=== PATIENT | female | born 1990 | race Caucasian/White ===

== ENCOUNTER 2018-03-23 10:11 | Inpatient (IN) ==
[2018-03-23] MEDS ORDERED: CALCIUM CARBONATE Chewable 500mg TABLET PO PRN (10:39)
[2018-03-23] MEDS ORDERED: ACETAMINOPHEN 500 MG TABLET PO PRN (10:39)
[2018-03-23] MEDS ORDERED: LIDOCAINE 1% (10mg/ml) 2mL INJ PF SDV ID PRN (10:39)
[2018-03-23] MEDS ORDERED: CARBOPROST 250 MCG/ML INJECTION IM PRN (10:39)
[2018-03-23] MEDS ORDERED: MAG-AL + SIM ORAL LIQUID 30ml PO PRN (10:39)
[2018-03-23] MEDS ORDERED: METHYLERGONOVINE 0.2 MG/ML INJECTION IM PRN (10:39)
[2018-03-23] MEDS ORDERED: SALINE FLUSH 10ml SYRINGE IV PRN (10:39)
[2018-03-23 10:44] VITALS: BMI 42.5
[2018-03-23] MEDS: LR 1,000 ML IV PRN (11:15)
[2018-03-23] MEDS: D5LR 1,000 ML IV PRN ×2 (11:20→20:26)
[2018-03-23] MEDS: OXYTOCIN DRIP 30 UNIT/500 ML ML IV PRN (11:20)
--- NOTE | 2018-03-23 17:10 | Anesthesia Preoperative Report ---
Anesthesia Epidural/Spinal Rec - Date and Time Date: 03/23/18 Procedure: Labor Epidural Plan: Epidural - Vital Signs Vital Signs: Pulse Rate 86 03/23/18 10:46 Respiratory Rate 16 03/23/18 10:46 Blood Pressure 140/94 H 03/23/18 10:46 /Para: P:1 - Medictaions & Allergies Inpatient Medications: Current Medications Acetaminophen (Tylenol) 500 - 1,000 mg PO Q4H PRN PRN Reason: Pain Al Hydroxide/Mg Hydroxide (Maalox Plus) 30 ml PO Q3H PRN PRN Reason: Indigestion Calcium Carbonate (Tums) 500 - 1,000 mg PO Q2H PRN PRN Reason: Indigestion Carboprost Tromethamine (Hemabate) 250 mcg IM O PRN PRN Reason: .Downtime Lactated Ringer's (Lactated Ringers) 1,000 mls @ 999 mls/hr IV .Q1H1M PRN Last Admin: 03/23/18 11:15 Dose: 999 mls/hr Dextrose/Lactated Ringer's (Dextrose 5%-Lactated Ringers) 1,000 mls @ 125 mls/ hr IV .Q8H PRN PRN Reason: Labor Last Admin: 03/23/18 11:20 Dose: 125 mls/hr Oxytocin (Pitocin Drip) 30 unit in 500 mls @ 2 mls/hr IV .Q24H PRN; Protocol PRN Reason: Induction/Augmentation Last Admin: 03/23/18 11:20 Dose: 2 mls/hr Lidocaine HCl (Xylocaine-Mpf 1% Vial) 0.2 mg ID O PRN PRN Reason: IV Start Methylergonovine Maleate (Methergine) 0.2 mg IM O PRN Misoprostol (Cytotec) 800 mcg TN ONCE PRN Sodium Chloride (Iv Flush) 10 - 80 ml IV PRN PRN PRN Reason: Flushing Allergies/Adverse Reactions: Allergies Allergy/AdvReac Type Severity Reaction Status Date / Time sulfamethoxazole Allergy Mild rash Verified 03/23/18 11:35 trimethoprim Allergy Mild rash Verified 03/23/18 11:35 - Home Medications Home Medications: Home Medications Medication Instructions Recorded Confirmed Type Vits W-Ca,Fe,Fa(<1MG) 1 tab PO DAILY #0 tab 02/14/14 03/23/18 History ( Vitamins) labetalol 100 mg tablet 100 mg PO BID tab 05/25/17 03/23/18 History - Medical History Cardiovascular: Reports: Hypertension Gastrointestional: Reports: Morbid Obesity Other History: Reports: Now - Surgical History Reproductive Surgery/Treatment: DENIES: Section Anesthesia Reactions: None Hx Family Anesthesia Reaction: No History of Motion Sickness: No - Social History Smoking Status: Never smoker Second Hand Exposure: No Substance Use Type: does not use Alcohol Intake Frequency: does not drink Hx Chewing Tobacco Use: No - Pertinent Findings Lab Data: CBC and BMP 03/23/18 10:56 03/23/18 11:04 BMP 03/23/18 11:04 Sodium 140 Potassium 4.2 Chloride 111 H Carbon Dioxide 21 L BUN 11.0 Creatinine 0.5 L Glucose 76 Calcium 9.0 Liver Function 03/23/18 Range/Units 11:04 Total Bilirubin 0.30 (0.20-1.30) MG/DL AST 18 (14-36) U/L ALT 13 (1-35) U/L Alkaline Phosphatase 140 H (38-126) U/L Albumin 3.6 (3.5-5.0) g/dL EKG Rhythm: Normal Sinus Rhythm - Physical Exam Respiratory Exam: lungs clear Cardiovascular Exam: regular rate and rhythm, no murmur - Airway Assessment Mallampati Score: II TMD: 3 Fingerbreadths Neck Extension: good Overall Assessment: may be difficult mask vent, may be difficult intubation - ASA ASA Score: 3 - Discussion Discussion: Discussed risks/options/alternatives of anesthesia and questions answered. Patient consents. Nursing pain assessment noted. Anesthesia Discussion: spouse Attestation Statement: Prior to the delivery of any anesthetic medication, I examined the patient, developed the plan, obtained the patient's consent and discussed the risk and benefits of the procedure with the patient/guardian.
[2018-03-24] MEDS ORDERED: ROPIVACAINE 1% 10MG/ML INJ 200 MG, SUFentanil 50 MCG in NS 80 ML EPI PRN (02:48)
[2018-03-24] MEDS ORDERED: CEFAZOLIN 1 G INJECTION IVP ONE (03:30)
[2018-03-24] MEDS ORDERED: CEFAZOLIN PREMIX (MC ONLY) 2 GM/50 ML BAG IV ONE (03:43)
[2018-03-24] MEDS: LR 1,000 ML IV PRN (03:47)
[2018-03-24] MEDS: OXYTOCIN DRIP 30 UNIT/500 ML ML IV PRN (05:18)
[2018-03-24] MEDS ORDERED: HYDROCODONE/APAP 5mg/325mg TABLET PO PRN (07:27)
[2018-03-24] MEDS ORDERED: MAG-AL + SIM ORAL LIQUID 30ml PO PRN (07:27)
[2018-03-24] MEDS ORDERED: CALCIUM CARBONATE Chewable 500mg TABLET PO PRN (07:27)
[2018-03-24] MEDS ORDERED: ACETAMINOPHEN 500 MG TABLET PO PRN (07:27)
[2018-03-24] MEDS ORDERED: DiphenhydrAMINE 25 MG CAPSULE PO PRN (07:27)
[2018-03-24] MEDS ORDERED: HYDROCORTISONE 2.5% CREAM 30gm RECTALLY PRN (07:27)
--- NOTE | 2018-03-24 07:32 | Labor and Delivery Note ---
DATE OF DELIVERY: 03/24/2018 Ms. Kim had very slow progression in labor. Baby was high and in irregular presentation although cephalic presentation. She at last progressed to complete dilatation over many hours. heart tones had been reassuring throughout the day and through the night. She began to push with excellent effort at the complete and +1 station. She pushed for a few minutes. The baby' s head we could see at the +2 presentation. The baby's head rotated from left OP to OA and immediately delivered. With a further push baby delivered in total. Baby was then bulb suctioned and placed on mother's abdomen. After a little over 2 minutes the cord was doubly clamped and was cut by the baby's father, Phil. This is a liveborn male with Apgars of 8/9/9. Weight has not yet been obtained as baby is still in skin to skin contact. After a few moments the placenta delivered spontaneously intact. It had a normal configuration and normal-appearing three-vessel cord. There was fairly brisk bleeding initially which was resolved with fundal massage and her Pitocin bolus. There were superficial bilateral periurethral lacerations that were hemostatic and not repaired. There was a first-degree midline laceration that was secured with a [id number] suture of 2-0 Vicryl and was then hemostatic. Total blood loss was approximately 400 cc. At the time of this dictation mother and baby are doing well. [facility]
[2018-03-24] MEDS: PRENATAL VITAMIN TABLET PO SCH (09:52)
[2018-03-24] MEDS: DOCUSATE CALCIUM 240 MG CAPSULE PO SCH (09:52)
[2018-03-24] MEDS: IBUPROFEN 800 MG TABLET PO PRN ×2 (10:39→19:01)
[2018-03-24] MEDS ORDERED: MEASLES-MUMPS-RUBELLA VACCINE 0.5ml INJECTION SUB-Q ONE (12:54)
--- NOTE | 2018-03-24 12:54 | OB/GYN Progress Note ---
OB-PP Progress Note - General PPD0 Maternal Group B Strep: Negative Maternal Rh: positive Maternal Rubella Status: Not Immune - Subjective Date: 03/24/18 Lochia: Minimal Pain: controlled Voiding: voiding Nausea or Vomiting Present: No - Objective Vital Signs: Last Vital Signs Pulse 86 03/23/18 10:46 Resp 16 03/23/18 10:46 BP 140/94 H 03/23/18 10:46 Urine Output: good General: alert and oriented - Assessment Assessment: SP, - Plan Plan: routine care Expected date of discharge: 03/25/18
--- NOTE | 2018-03-24 15:22 | Anesthesia Postoperative Note ---
- Date and Time Date: 03/24/18 Time: 15:15 - Status Patient Participated in Evaluation: Patient Participated in Person Vital Signs: Pulse Rate 86 03/23/18 10:46 Respiratory Rate 16 03/23/18 10:46 Blood Pressure 140/94 H 03/23/18 10:46 Respiratory Function: Airway Patent, Regular Respirations Cardiovascular Function: Regular Pulse Mental Status: Alert and Oriented Hydration: Taking PO Fluids Complications During Recover: None Apparent Post Anesthesia Care Notes: Patient ambulating without problems, bilateral feet slight numbness. Suggested to notify anesthesia if numbness persist tomorrow. - Follow-Up Instructions Instructions: Per Surgeon
[2018-03-25 07:18] VITALS: RESP 16
[2018-03-25] MEDS: DOCUSATE CALCIUM 240 MG CAPSULE PO SCH (08:43)
[2018-03-25] MEDS: IBUPROFEN 800 MG TABLET PO PRN ×2 (08:43→17:36)
[2018-03-25 15:37] VITALS: BP 114/70; PULSE 80; TEMP 98.3; O2SAT 98
[2018-03-25] MEDS: PRENATAL VITAMIN TABLET PO SCH (17:36)
== END 2018-03-25 18:35 | disposition home or self-care (01) | DRG 774 ==
LOC: MC 10:11
PROVIDERS: ADMIT Obstetrics & Gynecology; ATTEND Obstetrics & Gynecology